=== PATIENT | male | born 1980 | race Caucasian/White ===

== ENCOUNTER 2021-01-20 23:41 | Emergency (ER) | payer BC ==
[~2021-01-20] VITALS: Ht 165.1 cm; Wt 121.6 kg
[2021-01-21 00:46] LABS: ABSOLUTE NEUTROPHILS 4.2 thou/uL (1.4-8.2); BASOPHILS 0.6 % (0.0-2.0); EOSINOPHILS 7.6 % (0.0-3.0); HEMATOCRIT 42.8 % (42.0-52.0); LYMPHOCYTES 15.6 % (24.0-44.0); MCH 30.1 pg (26.0-34.0); MCHC 34.9 g/dL (28.0-37.0); MCV 86.1 fL (80.0-100.0); MONOCYTES 11.3 % (1.0-8.0); PLATELET COUNT 272 thou/uL (150-400); POLYS 64.9 % (36.0-66.0); RBC 4.97 mil/uL (4.50-6.00); WBC 6.5 thou/uL (4.0-11.0)
[2021-01-21 00:52] LABS: URINE BILIRUBIN NEGATIVE (Negative); URINE BLOOD NEGATIVE (Negative); URINE CLARITY CLEAR; URINE COLOR YELLOW; URINE GLUCOSE-RANDOM* NEGATIVE (Negative); URINE KETONES NEGATIVE (Negative); URINE LEUKOCYTES-REFLEX NEGATIVE (Negative); URINE NITRITE-REFLEX NEGATIVE (Negative); URINE PROTEIN (DIPSTICK) NEGATIVE (Negative); URINE UROBILINOGEN 0.2 E.U./dl (0.2-1.0)
[2021-01-21 00:53] LABS: CALCIUM 9.3 mg/dL (8.5-10.1); CREATININE 1.3 mg/dL (0.7-1.3); POTASSIUM 3.7 mmol/L (3.5-5.1)
[2021-01-21 01:00] LABS: ALBUMIN 4.1 g/dL (3.4-5.0); TOTAL BILIRUBIN 0.4 mg/dL (0.2-1.0); TOTAL PROTEIN 7.8 g/dL (6.4-8.2)
[2021-01-21] MEDS ORDERED: DOXYCYCLINE 10100 MG PO (02:03)
[2021-01-21 02:43] VITALS: BP 129/75
== END 2021-01-21 02:46 | disposition home or self-care (01) ==
LOC: ER 23:41
PROVIDERS: Emergency Medicine
DX: N45.1 Epididymitis (principal); N50.811 Right testicular pain; I10 Essential (primary) hypertension

== ENCOUNTER 2021-02-06 10:07 | Emergency (ER) | payer BC ==
[~2021-02-06] VITALS: Ht 165.1 cm; Wt 122.5 kg
[~2021-02-06 10:07] MED LIST: DOXYCYCLINE 10100 MG PO
[2021-02-06 10:49] LABS: URINE BILIRUBIN NEGATIVE (Negative); URINE BLOOD NEGATIVE (Negative); URINE CLARITY CLEAR; URINE COLOR YELLOW; URINE GLUCOSE-RANDOM* NEGATIVE (Negative); URINE KETONES NEGATIVE (Negative); URINE LEUKOCYTES-REFLEX NEGATIVE (Negative); URINE NITRITE-REFLEX NEGATIVE (Negative); URINE PROTEIN (DIPSTICK) NEGATIVE (Negative); URINE SPECIFIC GRAVITY 1.015 (1.005-1.035); URINE UROBILINOGEN 0.2 E.U./dl (0.2-1.0)
[2021-02-06 12:31] VITALS: BP 139/88
[2021-02-06] MEDS ORDERED: NORCO7.5 PO (12:37)
== END 2021-02-06 12:31 | disposition home or self-care (01) ==
LOC: ER 10:07
PROVIDERS: Emergency Medicine
DX: N50.811 Right testicular pain (principal); I10 Essential (primary) hypertension